=== PATIENT | female | born 1955 | race Caucasian/White ===

== ENCOUNTER 2022-01-21 09:59 | Outpatient (REF) | payer MEDICARE, MEDICAID, SELFPAY | END 2022-01-21 10:00 | disposition home or self-care (01) | LOC: HO.BBR 09:59 | PROVIDERS: Visit Provider Internal Medicine Hematology & Oncology | DX: D75.1 Secondary polycythemia (principal) | CPT/HCPCS: 85018; 99195 ==

== ENCOUNTER 2022-02-04 09:42 | Outpatient (REF) | payer MEDICARE, MEDICAID, SELFPAY | END 2022-02-04 09:43 | disposition home or self-care (01) | LOC: HO.BBR 09:42 | PROVIDERS: Visit Provider Internal Medicine Hematology & Oncology | DX: D75.1 Secondary polycythemia (principal) | CPT/HCPCS: 85018; 99195 ==

== ENCOUNTER 2022-02-18 08:44 | Outpatient (REF) | payer OTHER, MEDICAID, SELFPAY | END 2022-02-18 08:45 | disposition home or self-care (01) | LOC: HO.BBR 08:44 | PROVIDERS: Visit Provider Internal Medicine Hematology & Oncology | DX: D75.1 Secondary polycythemia (principal) | CPT/HCPCS: 85018; 99195 ==

== ENCOUNTER 2022-03-04 09:42 | Outpatient (REF) | payer OTHER, MEDICAID, SELFPAY | END 2022-03-04 09:43 | disposition home or self-care (01) | LOC: HO.BBR 09:42 | PROVIDERS: Visit Provider Internal Medicine Hematology & Oncology | DX: D75.1 Secondary polycythemia (principal) | CPT/HCPCS: 85018; 99195 ==

== ENCOUNTER 2022-03-18 08:51 | Outpatient (REF) | payer OTHER, MEDICAID, SELFPAY | END 2022-03-18 08:52 | disposition home or self-care (01) | LOC: HO.BBR 08:51 | PROVIDERS: Visit Provider Internal Medicine Hematology & Oncology | DX: D75.1 Secondary polycythemia (principal) | CPT/HCPCS: 85014; 85018; 99195 ==

== ENCOUNTER 2022-04-01 09:40 | Outpatient (REF) | payer OTHER, MEDICAID, SELFPAY | END 2022-04-01 09:41 | disposition home or self-care (01) | LOC: HO.BBR 09:40 | PROVIDERS: Visit Provider Internal Medicine Hematology & Oncology | DX: D75.1 Secondary polycythemia (principal) | CPT/HCPCS: 85014; 85018 ==

== ENCOUNTER 2022-04-22 09:30 | Outpatient (REF) | payer OTHER, MEDICAID, SELFPAY | END 2022-04-22 09:31 | disposition home or self-care (01) | LOC: HO.BBR 09:30 | PROVIDERS: Visit Provider Internal Medicine Hematology & Oncology | DX: D75.1 Secondary polycythemia (principal) | CPT/HCPCS: 85014; 85018; 99195 ==